=== PATIENT | male | born 1970 | race Caucasian/White ===

== ENCOUNTER → 2024-11-02 13:48 | Outpatient (BNVA) | payer MEDICARE, MEDICAID, SELFPAY | DX: I10 Essential (primary) hypertension (principal) | CPT/HCPCS: 80053; 80061; 83036; 84439; 84443; 84481; 85025 ==

== ENCOUNTER → 2024-11-05 09:43 | Outpatient (BNVA) | payer MEDICARE, SELFPAY | PROVIDERS: Visit Provider Student in an Organized Health Care Education/Training Program | DX: Z12.11 Encounter for screening for malignant neoplasm of colon (principal) | CPT/HCPCS: 99024; 99204 ==

== ENCOUNTER 2024-11-17 09:18 | Outpatient (CLI) | payer MEDICARE, SELFPAY ==
--- NOTE | 2024-11-17 09:24 | XR_ITS ---
WS: [id number] XR lumbar spine 2-3V* [id number] REASON FOR EXAM: chronic back pain FINDINGS: Mild straightening of the normal lordosis. There are 4 lumbar vertebrae without ribs. The fifth lumbar vertebra is partially sacralized with rudimentary disc formation. No significant vertebral body compression deformity. Limbus vertebrae at L3. Moderate narrowing of the disc space between the second and third lumbar vertebrae. Significant narrowing of the disc space between the the fourth lumbar vertebrae and the partially sacralized L5 with moderate endplate sclerosis and osteophytosis. No spondylolysis or spondylolisthesis. There may be narrowing of the distal most lumbar spinal canal due to the short pedicles of the fourth lumbar vertebrae. 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 Degenerative spondylosis as above. Possible wall congenital spinal canal narrowing as above.
--- NOTE | 2024-11-17 09:24 | XR_ITS ---
WS: [id number] XR chest 2V* [id number] REASON FOR EXAM: copd FINDINGS: The heart and the mediastinum are within normal limits. Calcified granulomatous disease bilaterally. Flattening of the hemidiaphragms with areas of cystic lucency in the upper lungs. No acute pulmonary parenchymal or pleural abnormality. No significant abnormality of the bony thorax. XR/XR chest 2V* [id number] IMPRESSION: Possible central lobar emphysema. No acute chest abnormality.
--- NOTE | 2024-11-17 09:24 | XR_ITS ---
WS: [id number] XR thoracic spine 3V* [id number] REASON FOR EXAM: chronic back pain FINDINGS: Mild thoracic scoliosis with no significant kyphosis. No significant vertebral body compression deformity or focal lesion. Minimal joint space narrowing and endplate sclerosis in the mid thoracic spine. XR/XR thoracic spine 3V* [id number] IMPRESSION: Mild thoracic scoliosis with minimal degenerative spondylosis.
== END 2024-11-17 09:19 | disposition home or self-care (01) ==
LOC: RAD 09:21
DX: J44.9 Chronic obstructive pulmonary disease, unspecified (principal); M41.9 Scoliosis, unspecified; M25.78 Osteophyte, vertebrae; M43.27 Fusion of spine, lumbosacral region; M48.061 Spinal stenosis, lumbar region without neurogenic claudication; G89.29 Other chronic pain
CPT/HCPCS: 71046; 72072; 72100

== ENCOUNTER 2024-11-27 01:02 | Emergency (ER) | payer MEDICARE, MEDICAID, SELFPAY ==
--- OUTSIDE RECORDS SUMMARY | 2024-10-05 03:40 | XMS_ITS | Continuity of Care Document ---
Author Organization [facility] Address [address] [place] [address] Phone Care Team Providers Care Financial Services Agent Name Role Phone Ebony Damon Unavailable Unavailable Allergies, Adverse Reactions, Alerts Substance Reaction Status Criticality baclofen Paranoia Active No Information Medications Medication Instructions Dosage Effective Dates (start - stop) Status Comments amlodipine 5 mg tablet TAKE 1 TABLET BY MOUTH EVERY DAY - Active lidocaine 5 % topical patch apply 1 patch to area of pain once every day. May cut. May wear up to 12hours. - Active Trelegy Ellipta 100 mcg-62.5 mcg-25 mcg powder for inhalation inhale 1 puff by inhalation route every day at the same time each day 1.00 puff - Active ibuprofen 800 mg tablet take 1 tablet by oral route 2 times every day as needed for pain. Take with food. - Active Please deliver to [facility] albuterol sulfate HFA 90 mcg/actuation aerosol inhaler inhale 2 puff by inhalation route every 4 - 6 hours as needed for trouble breathing - Active albuterol sulfate 2.5 mg/3 mL (0.083 %) solution for nebulization inhale 3 milliliter by nebulization route every 6-8 hours, as needed for trouble breathing in place of albuterol inhaler - Active HYDROXYZINE HCL (unknown strength) take 1 tablet by by mouth route every day Not Available - Active Suboxone 8 mg-[address] 2 film by sublingual route 2 times every day allow to dissolve slowly in mouth without chewing or swallowing 2 film - Active Invega Sustenna 234 mg/1.5 mL intramuscular syringe inject 1.5 milliliter by intramuscular route every month 234 MG - Active albuterol sulfate HFA 90 mcg/actuation aerosol inhaler inhale 2 puff by inhalation route every 4 - 6 hours as needed as needed 180 MCG - Active amlodipine 5 mg tablet TAKE 1 TABLET BY MOUTH EVERY DAY - No Longer Active lidocaine 5 % topical patch apply 1 patch to area of pain once every day. May cut. May wear up to 12hours. - No Longer Active please deliver this month's to [facility] Trelegy Ellipta 100 mcg-62.5 mcg-25 mcg powder for inhalation inhale 1 puff by inhalation route every day at the same time each day 1.00 puff No Longer Active Please deliver to [facility]. Procedures Procedure Date Two Surface Anterior Resin Comp Mar- 025 Local Anesthesia Three Surface Anterior Resin Comp Two Surface Anterior Resin Comp Jun- 025 Two Surface Anterior Resin Comp Jun- 025 Three Surface Anterior Resin Comp Three Surface Anterior Resin Comp Three Surface Posterior Resin Comp Mar- Three Surface Posterior Resin Comp Mar-1 Extraction, Erupted Tooth Or Exposed Michelle t ([facility] Local Anesthesia Extraction, Erupted Tooth Or Exposed Michelle t ([facility] Extraction, Erupted Tooth Or Exposed Michelle t ([facility] Extraction, Erupted Tooth Or Exposed Michelle t ([facility] Extraction, Erupted Tooth Or Exposed Michelle t ([facility] Extraction, Erupted Tooth Or Exposed Michelle t ([facility] Extraction, Erupted Tooth Or Exposed Michelle t ([facility] Extraction, Erupted Tooth Or Exposed Michelle t ([facility] Extraction, Erupted Tooth Or Exposed Michelle t ([facility] Extraction, Erupted Tooth Or Exposed Michelle t ([facility] [employer] Intraoral Periapical First Film 025 Intraoral Periapical Each Additional Jun Intraoral Periapical Each Additional Jun Intraoral Periapical Each Additional Jun [employer] Comprehensive Evaluation Caries Risk Assessment And Documentation High Risk OFFICE O/P EST LOW 20-29 MIN OFFICE O/P EST MOD 30-39 MIN Ketorolac tromethamine inj IMMUNIZATION ADMIN, EACH ADD FLU VACCINE NO PRESERV 3 & > IMMUNIZATION ADMIN TDAP VACCINE >7 IM PREV VISIT, NEW, AGE 40-64 ROUTINE VENIPUNCTURE COMPLETE CBC W/AUTO DIFF WBC COMPREHEN METABOLIC PANEL ASSAY OF FREE THYROXINE GLYCATED HEMOGLOBIN TEST ASSAY THYROID STIM HORMONE LIPID PANEL NATRIURETIC PEPTIDE OFFICE/OUTPATIENT VISIT, EST DRUG TEST PRSMV DIR OPT OBS OFFICE/OUTPATIENT VISIT, EST OFFICE/OUTPATIENT VISIT, EST ROUTINE VENIPUNCTURE ASSAY OF BLOOD/URIC ACID OFFICE/OUTPATIENT VISIT, EST DRUG TEST PRSMV DIR OPT OBS PSYCH DIAG EVAL W/MED SRVCS OFFICE/OUTPATIENT VISIT, EST OFFICE/OUTPATIENT VISIT, EST OFFICE/OUTPATIENT VISIT, EST ROUTINE VENIPUNCTURE NATRIURETIC PEPTIDE BASIC METABOLIC PANEL ASSAY OF FREE THYROXINE ASSAY THYROID STIM HORMONE LIPID PANEL SNRP Periodontal Scaling And Root Planing-One To Three Periodontal Scaling And Root Planing-One To Three Periodontal Scaling And Root Planing-One To Three PHQ2 Screening PHQ2 Screening Limited Evaluation Intraoral Periapical First Film 022 Intraoral Periapical Each Additional Apr Intraoral Periapical Each Additional Apr Intraoral Periapical Each Additional Apr Intraoral Periapical Each Additional Apr Panoramic Film Bitewing [employer] Films Perio Exam DRUG TEST PRSMV DIR OPT OBS OFFICE/OUTPATIENT VISIT, EST PSYCH DIAGNOSTIC EVALUATION DRUG TEST PRSMV DIR OPT OBS OFFICE/OUTPATIENT VISIT, EST DRUG TEST PRSMV DIR OPT OBS Admin influenza virus vac FLU VAC NO PRSV 4 AZAEL 3 YRS+ OFFICE/OUTPATIENT VISIT, EST ROUTINE VENIPUNCTURE COMPLETE CBC W/AUTO DIFF WBC COMPREHEN METABOLIC PANEL GLYCATED HEMOGLOBIN TEST LIPID PANEL DRUG SCREEN ONE/MULT CLASS HEPATITIS C AB TEST HIV-1 AG W/HIV-1 & HIV-2 AB Infectious agent detection by nucleic ac id OFFICE/OUTPATIENT VISIT, EST OFFICE/OUTPATIENT VISIT, EST OFFICE/OUTPATIENT VISIT, NEW Advance Directives Directive Yes / No Effective Date File Name No Information Encounters Encounter Description Practice Location Reason(s) For Visit Diagnoses Date Provider Providers Copied on Encounter [facility], [address] [place] [address] Drive, [place], [id number], [place] tel:[phone] [facility] No Information Maedlin Beck. [address] [facility], [id number] [address] [place] [address], [id number], [place]. tel:[phone] [facility], [address] [place] [address] ons [place], [id number], [place] tel:[phone] [facility] No Information Jun- 5 Madelin Beck. [facility], [id number] [address] [place] [address], [id number], [place]. tel:[phone] [facility], [address] [place] [address] ons [place], [place], [id number], [place] tel:[phone] [facility] Encounter for dental examination and cleaning without abnormal findings Jun- 5 Terra Rosen. [facility] [employer] [address], [id number] [address] [place] [address], [id number], [place]. tel:[phone] Referring Provider: Silas Ellison, [facility] [employer] [id number] [place] [address], [address]. tel:[phone] [facility], [address] [place] [address], [id number], [place] tel:[phone] [facility] Encounter for dental examination and cleaning without abnormal findings 5 Terra Rosen. [facility] [employer] [address], [id number] [address] [place] [address], [id number], [place]. tel:[phone] Referring Provider: Silas Ellison, [facility] [employer] [id number] [place] [address], [address]. tel:[phone] [facility], [address] [place] [address], [id number], [place] tel:[phone] [facility] Encounter for dental examination and cleaning without abnormal findings 5 Terra Rosen. [facility] [employer] [address], [id number] [address] [place] [address], [id number], [place]. tel:[phone] Referring Provider: Silas Ellison, [address] [facility] [id number] [place] [address], [address]. tel:[phone] OFFICE O/P EST LOW 20-29 MIN [facility], [facility] Communicati ons [facility], [place], [place], [id number], tel:[phone] [facility] back pain (chief complaint) Body mass index [BMI] 31.0-31.9, adultLow back painCOPDToba tobacco prevention health educator use 5 Yusuf Ebony. [address] [place] [address], [id number] [address] [place] [address], [id number], [place]. tel:[phone] Referring Provider: Ebony Yusuf, [address] [place] [id number] [place] [address], [address]. tel:[phone] [facility], [address] [place] [address], [id number], tel:[phone] [facility] Adult obstructive sleep apnea 4 Yusuf Ebony. [facility], [id number] [address] [place] [address], [id number], [place]. tel:[phone] [facility], [address] [place] [address] ons [place], [id number], tel:[phone] [facility] Adult obstructive sleep apnea 4 Yusuf Ebony. [address] [place] [address], [id number] [address] [place] [address], [id number], [place]. tel:[phone] [facility], [facility] [address] [place], [id number], tel:[phone] [facility] AnemiaCOPDEs sential (primary) hypertension Hypothyroidi sm, unspecifiedT obacco useSyncope and collapseEnco unter for screening for diabetesHype rlipidemia, unspecifiedE ncounter for screening for malignant neoplasm of prostateEnco unter for screening for other viral diseasesEnco unter for STI screeningOth er buttermaker helper (current) drug therapy 4 Yusuf Ebony. [address] [place] [address], [id number] [address] [place] [address], [id number], [place]. tel:[phone] OFFICE O/P EST MOD 30-39 MIN [facility], [address] [place] [address], [id number], [place] tel:[phone] [facility] Return to work Note (chief complaint) Body mass index [BMI] 30.0-30.9, adultEssenti al (primary) hypertension Amphetamine type substance use disorder, moderateToba tobacco prevention health educator useSyncope and collapseBipo lar disorder, unspecified 4 Madelin Beck. [address] [place] [address], [id number] [address] [place] [address], [id number], [place]. tel:[phone] Referring Provider: Ebony Yusuf, [address] [place] [id number] [place] [address], [address]. tel:[phone] [facility], [address] [place] [address], [id number], [place] tel:[phone] [facility] Dorsalgia, unspecified 4 Madelin Bunchin. [address] [place] [address], [id number] [address] [place] [address], [id number], [place]. tel:[phone] [facility], [address] [place] [address], [id number], [place] tel:[phone] [facility] Irregular Stool (chief complaint) Body mass index [BMI] 30.0-30.9, adultOther fecal abnormalitie Kenia in unspecified shoulderBack pain 4 Madelin Beck. [address] [place] [address], [id number] [address] [place] [address], [id number], [place]. tel:[phone] Referring Provider: Ebony Yusuf, [address] [place] [id number] [place] [address], [address]. tel:[phone] PREV VISIT, NEW, AGE 40-64 [facility], [address], [place], [place], [id number], [place] tel:[phone] [facility] Est care (chief complaint) Body mass index [BMI] 29.0-29.9, adultAmpheta mine type substance use disorder, severeAnemia COPDEncounte r for screening for HIVEncounter for screening for other viral diseasesEsse ntial (primary) hypertension Hyperlipidem ia, unspecifiedH ypothyroidis m, unspecifiedT obacco useBack painEncounte r for adult annual physical exam w/ abnormal findingAdult obstructive sleep apnea 4 Madelin Beck. [address] [place] [address], [id number] [facility], [place], [place], [id number], [place]. tel:[phone] Referring Provider: Ebony Yusuf, [address] [place] [address] [id number] [facility], [place], [address]. tel:[phone] [facility], [address], [place], [place], [id number], [place] tel:[phone] [facility] Hypothyroidi sm, unspecifiedA nemia 2 Elizabeth Duran [facility] [address], [id number] [facility], [place], [place], [id number], [place]. tel:[phone] OFFICE/OUTPA TIENT VISIT, EST [facility], [facility] [address], [place], [place], [id number], [place] tel:[phone] [facility] Discuss Medications (chief complaint)Pr ovider note-Malcom Johnson FABRICATION SUPERVISOR (chief complaint) Body mass index (BMI) 40.0-44.9, adultTobacco useEdemaEsse ntial (primary) hypertension Opioid Use Disorder, SeverePure hyperglyceri demiaHypothy roidism, unspecifiedP ersonal history of nicotine dependenceOb esity 2 Elizabeth Duran [address], [id number] 0, [place], [id number], [place]. tel:[phone] Referring Provider: Mia Johnson, [facility] [address] [id number] [address], [place], [address]. tel:[phone] [facility], [address], [place], [id number], [place] tel:[phone] [facility] No Information 2 Elizabeth Bellamy. [address], [id number] [address], [place], [id number], [place]. tel:[phone] OFFICE/OUTPA TIENT VISIT, EST [facility], [address], [place], [id number], [place] tel:[phone] [facility] AMP OUD medication management without psychotherap y (chief complaint) Opioid Use Disorder, SevereAmphet amine type substance use disorder, severePost-t raumatic stress disorder, chronicBipol ar disorder, unspecifiedG eneralized Anxiety Disorder 2 Misty Leonard. [address], [id number] [address], [place], [id number], [place]. tel:[phone] Referring Provider: Horacio Rashid, [facility] [address] [id number] [address], [place], [address]. tel:[phone] OFFICE/OUTPA TIENT VISIT, EST [facility], [address], [place], [id number], [place] tel:[phone] [facility] Symptoms Check (chief complaint)Pr ovider note-A. Elizabeth FABRICATION SUPERVISOR (chief complaint) Body mass index (BMI) 40.0-44.9, adultTobacco useEdema 2 Elizabeth Bellamy. [address], [id number] [address], [place], [place], [id number], [place]. tel:[phone] Referring Provider: Mia Johnson, [facility] [address] [id number] [address], [place], [address]. tel:[phone] OFFICE/OUTPA TIENT VISIT, EST [facility], [address], [place], [id number], [place] tel:[phone] [facility] Follow up (chief complaint)Pr ovider note-A. Elizabeth FABRICATION SUPERVISOR (chief complaint) Body mass index (BMI) 39.0-39.9, adultTobacco useEdema 2 Elizabeth Bellamy. [address], [id number] 0, [place], [id number], [place]. tel:[phone] Referring Provider: Mia Johnson, [address] [id number] 0, [place], [address]. tel:[phone] PSYCH DIAG EVAL W/MED SRVCS [facility], [address], [place], [id number], [place] tel:[phone] [facility] Psychiatric diagnostic evaluation AMP (chief complaint) Opioid Use Disorder, SevereAmphet amine type substance use disorder, severeBody mass index (BMI) 39.0-39.9, adultBipolar disorder, unspecifiedP ost-traumati c stress disorder, chronicPerso nal history of physical and sexual abuse in childhoodImp risonment or Other Incarceratio nGeneralized Anxiety Disorder 2 Misty Leonard. [address], [id number] [address], [place], [id number], [place]. tel:[phone] Referring Provider: Horacio Rashid, [facility]1 x[address] [id number] [address], [place], [address]. tel:[phone] OFFICE/OUTPA TIENT VISIT, EST [facility], [address], [place], [id number], [place] tel:[phone] [facility] follow up (chief complaint)Pr pro note-A. Elizabeth FABRICATION SUPERVISOR (chief complaint) Body mass index (BMI) 39.0-39.9, adultEdema 2 Elizabeth Bellamy. [address], [id number] [address], [place], [id number], [place]. tel:[phone] Referring Provider: Mia Johnson, [address] [id number] [address], [place], [address]. tel:[phone] OFFICE/OUTPA TIENT VISIT, EST [facility], [address], [place], [id number], [place] tel:[phone] [facility] Symptoms Check (chief complaint)Pa tient note-ASherlyn Johnson FABRICATION SUPERVISOR (chief complaint) Body mass index (BMI) 39.0-39.9, adultTobacco useEdema 2 Elizabeth Bellamy. [address], [id number] [address], [place], [place], [id number], [place]. tel:[phone] Referring Provider: Mia Johnson, [address] [id number] [address], [place], [address]. tel:[phone] [facility], [address], [place], [id number], [place] tel:[phone] [facility] Edema 2 Elizabeth Mott x[address], [id number] [address], [place], [id number], [place]. tel:[phone] OFFICE/OUTPA TIENT VISIT, EST [facility], [address], [place], [id number], [place] tel:[phone] [facility] Follow up (chief complaint)Pr ovider note-A. Elizabeth FABRICATION SUPERVISOR (chief complaint) Body mass index (BMI) 39.0-39.9, adultTobacco useEdemaWhee zingOrthopne aCOPDHyperli pidemia, unspecified 2 Elizabeth Bellamy. [address], [id number] [address], [place], [place], [id number], [place]. tel:[phone] Referring Provider: Mia Johnson, [address] [id number] 0, [place], [address]. tel:[phone] [facility], [address], [place], [id number], [place] tel:[phone] [facility] No Information 2 Edgar Atkins. [address] [id number] 0, [place], [id number], [place]. tel:[phone] Referring Provider: Joelle Garza, [address] [id number] 0, [place], [address]. tel:[phone] lting Provider: Vicenta Garcíaati eloise Monaco [id number] 0, [place], [address]. tel:[phone] [facility], [address], [place], [id number], [place] tel:[phone] [facility] No Information 2 Edgar Atkins. [address] [id number] 0, [place], [id number], [place]. tel:[phone] Referring Provider: Carly Rice, [address], [place], [address]. tel:[phone] lting Provider: Joelle Garza, [address] [id number] 0, [place], [address]. tel:[phone] OFFICE/OUTPA TIENT VISIT, EST [facility], [address], [place], [id number], [place] tel:[phone] [facility] Follow up (chief complaint)Melisa carrasco-Malcom Johnson FABRICATION SUPERVISOR (chief complaint) Body mass index (BMI) 37.0-37.9, adultTobacco usePain in left kneeOpioid Use Disorder, SeverePure hyperglyceri demia Dec-2 9-202 1 Elizabeth Bellamy. [address], [id number] [address], [place], [id number], [place]. tel:[phone] Referring Provider: Mia Johnson, [address] [id number] [address], [place], [address]. tel:[phone] PSYCH DIAGNOSTIC EVALUATION [facility], [address], [place], [place], [id number], [place] tel:[phone] [facility] Amphetamine type substance use disorder, severe 1 Cholo Farr. [address], [place], [place], [id number], [place]. tel:[phone] Referring Provider: Chika Emmanuel, [facility] [address], [place], [address]. tel:[phone] OFFICE/OUTPA TIENT VISIT, EST [facility], [address], [place], [id number], [place] tel:[phone] [facility] follow up (chief complaint)Pr ovider note-A. Elizabeth FABRICATION SUPERVISOR (chief complaint) Body mass index (BMI) 34.0-34.9, adultPure hyperglyceri demiaCOPDEss ential (primary) hypertension Opioid Use Disorder, SevereHypoth yroidism, unspecified 1 Elizabeth Bellamy. [address], [id number] [address], [place], [place], [id number], [place]. tel:[phone] Referring Provider: Mia Maria Fernandagalina, [facility] [address] [id number] [address], [place], [address]. tel:[phone] OFFICE/OUTPA TIENT VISIT, EST [facility], [address], [place], [place], [id number], [place] tel:[phone] [facility] Establish Care (chief complaint)Pr ovider note-A. Elizabeth FABRICATION SUPERVISOR (chief complaint) Body mass index (BMI) 34.0-34.9, adultTobacco useOpioid Use Disorder, SevereEncoun ter for screening for HIVEncounter for screening for other viral diseasesDiso rder of the skinHyperlip idemia, unspecifiedO besityOther stimulant abuse, uncomplicate dCOPDEssenti al (primary) hypertension 1 Elizabeth Bellamy. [address], [id number] 0, [place], [id number], [place]. tel:[phone] Referring Provider: Mia Johnson, [address] [id number] 0, [place], [address]. tel:[phone] [facility], [facility] [address], [place], [id number], [place] tel:[phone] [facility] No Information 1 Wilner Villarreal. [address], [id number] 0, [place], [id number], [place]. tel:[phone] Referring Provider: Cherelle Darby, [address] [id number] 0, [place], [address]. tel:[phone] OFFICE/OUTPA TIENT VISIT, EST [facility], [address], [place], [id number], [place] tel:[phone] [facility] Mati Follow Up of MAT Treatment (chief complaint)Fo llow Up of abscess right leg (chief complaint) Other stimulant abuse, uncomplicate dCutaneous abscess of right lower limbEdema 1 Javad Craven. [facility] [address] [place], [place], [id number], [place]. tel:[phone] Referring Provider: Herber Taveras, [address] [place], [address]. tel:[phone] OFFICE/OUTPA TIENT VISIT, EST [facility], [facility] [address], [place], [id number], [place] tel:[phone] [facility] Mati Abscess on leg (chief complaint)Fo llow Up of MAT Treatment (chief complaint)Sl eep apnea (chief complaint)me thamphetamin e addiction (chief complaint) Other stimulant abuse, uncomplicate dCutaneous abscess of right lower limb Sep-3 0 1 Javad Craven. [address] [place], [place], [id number], . tel:[phone] Referring Provider: Herber Taveras [address] [place] [address], [address]. tel:[phone] OFFICE/OUTPA TIENT VISIT, NEW [facility], [address] [place] [address], [id number], [place] tel:[phone] [facility] methamphetam ine addiction (chief complaint)in fection on right calf (chief complaint) Other (or Unknown) Substance Use Disorder, SevereCutane ous abscess of right lower limb Sep-2 1 Javad Craven. [facility] [address] [place], [place], [id number], [place]. tel:[phone] Referring Provider: Herber Taveras [address] [place] [address], [address]. tel:[phone] Family History Family Member Type Diagnosis Age At Onset Problem Family history o f coronary arteriosclerosis Mother Problem (finding) Problem Family history of Diabetes m ellitus Problem Family history of hypertensi on Father Problem (finding) Immunizations Vaccine Date Status Comments Influenza, injectable, trivalent, split virus, 0.5 mL dosage, preservative free, Fluarix Triv administered Source: New Immun ization Record Tdap (Boostrix) administered Source: New Immunization Record Influenza, injectable, quadrivalent, split virus, preservative free, 0.5 mL dosage, 3 years and older, Afluria Quad administered Source: New Immun ization Record SARS-COV-2 (COVID-19) vaccin e, mRNA, spike protein, LNP, preservative free, 30 mcg/0.3mL dose, elvis-sucrose formulation administered Source: P ublic Agency SARS-COV-2 (COVID-19) vaccin e, mRNA, spike protein, LNP, preservative free, 30 mcg/0.3mL dose administered Source: Public Agenc y Tdap (Boostrix) administered Source: Sour ce Unspecified Td (adult) preservative free administered Source: Public Agency Tdap (Adacel) administered Source: Public Agency pneumococcal polysaccharide vaccine, 23 valent administered Source: Source Unspe cified pneumococcal polysaccharide vaccine, 23 valent administered Source: Source Unspe cified Tdap (Boostrix) administered Source: [facility] hepatitis B vaccine, unspecified formulation administered Source: Source U nspecified hepatitis B vaccine, unspecified formulation administered Source: Source U nspecified Payers Payer name Insurance type Covered republican ID Authoriza tion(s) [facility] [id number] [employer] Medicare Replacment CI [id number] [facility] [id number] Medicare Part B WPS MB [id number] [facility] [id number] Social History Type Description Quantity Date Captured Comments Sex Male Smoking Status No Information Sexual Orientation Straight or heterosexual Gender Identity Male Chief Complaint And Reason For Visit No Information Reason For Referral Reason For Referral No Information Plan Of Treatment Date Type Action Status Goal FIT. Due on due Goal CT-Colonography. Due on due Goal Pneumococcal vac cine. Due on due Goal Lipid panel. Due on 025 due Goal Unhealthy drug u se screening. Due on due Goal Sigmoidoscopy. Due on due Goal Td vaccine. Due on 34 due Goal Diabetes screeni ng. Due on due Goal Tdap due Goal FOBT. Due on due Goal FIT-DNA. Due on due Goal Hepatitis C scre ening. Due on due Goal Influenza vaccin e. Due on due Goal Depression scree roberto. Due on due Goal Colonoscopy. Due on due Goal Pneumococcal Pre vnar. Due on due Goal Zoster vaccine ( ). Due on due Goal Dietary manageme nt education, guidance, and counseling completed Goal Tobacco cessation counseling completed Goal Td vaccine. Due on 34 due Goal FIT-DNA. Due on due Goal Diabetes screeni ng. Due on due Goal Hepatitis C scre ening. Due on due Goal Pneumococcal Pre vnar. Due on due Goal Zoster vaccine ( ). Due on due Goal Depression scree roberto. Due on due Goal Unhealthy drug u se screening. Due on due Goal Influenza vaccin e. Due on due Goal FIT. Due on due Goal Lipid panel. Due on 024 due Goal Sigmoidoscopy. Due on due Goal CT-Colonography. Due on due Goal FOBT. Due on due Goal Colonoscopy. Due on due Goal Tdap due Goal Pneumococcal vac cine. Due on due Goal Colonoscopy. Due on due Goal Sigmoidoscopy. Due on due Goal CT-Colonography. Due on due Goal Influenza vaccin e. Due on due Goal Hepatitis C scre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 unspecified continue fenofibrate 160mg daily for cholesterolstop the atorvastatin Related to Pure hyperglyceridemia Lasix 20mg daily Related to Mac a restart the losartan 100mg dailymetoprolol (Toprol XL) 25 mg daily Related to Essential (primary) hypertension Giving encouragement to exercise Related to Body mass index [BMI] 40.0-44.9, adult Dietary management e ducation, guidance, and counseling Related to Body mass index [BMI] 40.0-44.9, adult Giving encouragement to exercise Related to Body mass index [BMI] 40.0-44.9, adult Dietary management e ducation, guidance, and counseling Related to Body mass index [BMI] 40.0-44.9, adult Giving encouragement to exercise Related to Body mass index [BMI] 39.0-39.9, adult Dietary management e ducation, guidance, and counseling Related to Body mass index [BMI] 39.0-39.9, adult Giving encouragement to exercise Related to Body mass index [BMI] 39.0-39.9, adult Dietary management e ducation, guidance, and counseling Related to Body mass index [BMI] 39.0-39.9, adult Giving encouragement to exercise Related to Body mass index [BMI] 39.0-39.9, adult Dietary management e ducation, guidance, and counseling Related to Body mass index [BMI] 39.0-39.9, adult Giving encouragement to exercise Related to Body mass index [BMI] 39.0-39.9, adult Dietary management e ducation, guidance, and counseling Related to Body mass index [BMI] 39.0-39.9, adult Giving encouragement to exercise Related to Body mass index [BMI] 39.0-39.9, adult Dietary management e ducation, guidance, and counseling Related to Body mass index [BMI] 39.0-39.9, adult Giving encouragement to exercise Related to Body mass index [BMI] 37.0-37.9, adult Dietary management e ducation, guidance, and counseling Related to Body mass index [BMI] 37.0-37.9, adult Dietary management e ducation, guidance, and counseling Related to Body mass index [BMI] 34.0-34.9, adult Giving encouragement to exercise Related to Body mass index [BMI] 34.0-34.9, adult Giving encouragement to exercise Related to Body mass index [BMI] 34.0-34.9, adult Dietary management e ducation, guidance, and counseling Related to Body mass index [BMI] 34.0-34.9, adult Continue Keflex and Bactrim. Ortho Consult. Medication instructions were provided to the patient. Signs and symptoms of infection were discussed with the patient. Signs and symptoms of emergency were discussed with the patient. Related to Cutaneous abscess of right lower limb Continue plan of car e for inpatient [facility] treatment. Patient to inform nurses if he develops any issues while being an inpatient at our facility. Discontinue Seroquel from another provider and start Suboxone 4mg/1mg TID Related to Other stimulant abuse, uncomplicated Take HCTZ daily to r educe edema in lower extremities Related to Edema Refer patient to [facility] for follow-up after discharge from inpatient. Continue to take antibiotics as prescribed by the ER. Related to Cutaneous abscess of right lower limb Continue with Suboxo ne 4mg/1mg TID. Continue plan of care for inpatient [facility] treatment. Patient to inform nurses if he develops any issues while being an inpatient at our facility. The patient verbalized an understanding of the plan. The patient verbalized an understanding of all instructions. Related to Other stimulant abuse, uncomplicated Continue plan of car e for inpatient [facility] treatment. Patient to inform nurses if he develops any issues while being an inpatient at our facility. Baclofen 10mg BID to help with meth cravings. The patient verbalized an understanding of all instructions. The patient verbalized an understanding of the plan. Related to Other (or Unknown) Substance Use Disorder, Severe Get a wound clinic c onsult for Right calf abscess Related to Cutaneous abscess of right lower limb Assessments Type Assessment Date No Information Patient Care Teams Name Effective Dates (start - stop) Status Members No Information
[2024-11-27 01:13] VITALS: BP 178/84; PULSE 102; RESP 18; TEMP 36.9; O2SAT 96; BMI 29.9
[2024-11-27 01:31] LABS: Add Urine Microscopic? NO
[2024-11-27 01:34] LABS: Glucose Urine UA Negative (Normal); Nitrate Urine Negative (Negative)
[2024-11-27 01:41] LABS: Charge for UA Resulting for Rev; PCP Screen Urine Negative (Negative); Specific Gravity, Urine 1.031 (1.005-1.030)
[2024-11-27 01:42] LABS: Hematocrit 43.9 % (37-53); Hemoglobin 15.00 g/dL (11.27-16.99); Mean Corpuscular HGB Conc 34.2 g/dL (30-55); Mean Corpuscular Hemoglobin 30.5 pg (27-33); Mean Corpuscular Volume 89.4 fl (82-101); Nucleated Red Blood Cells % 0 %; Platelet Count 202 10^3/cmm (157-399); Red Blood Count 4.91 10^6/uL (3.85-5.65); White Blood Count 9.73 10^3/uL (3.29-11.43)
[2024-11-27 02:03] LABS: Alanine Aminotransferase 20 U/L (0-41); Albumin Level 4.8 g/dL (3.5-5.2); Alkaline Phosphatase 105 U/L (40-130); Anion Gap 19.0 (5-19); Aspartate Amino Transferase 39 U/L (0-40); Blood Urea Nitrogen 22 mg/dL (6-20); Calcium 9.9 mg/dL (8.5-10.5); Carbon Dioxide 23 mmol/L (22-29); Chloride 104 mmol/L (98-107); Creatinine Clr Calc Pharmacy 90.3541; Globulin 3.8 g/dL (1.3-4.6); Glucose 114 mg/dL (65-115); Osmolality Calculated 298 mOsm/kg (285-295); Potassium 4.0 mmol/L (3.5-5.1); Sodium 142 mmol/L (136-145); Total Protein 8.6 g/dL (6.6-8.7)
[2024-11-27 02:06] LABS: Acetaminophen < 5.0 ug/mL (10-30); Alcohol Level < 10 mg/dL (0-10); Salicylate < 0.3 mg/dL (3-10)
--- NOTE | 2024-11-27 02:45 | PC.NURSE ---
Pt. demanding to leave. Doctor Jonas informed and states that it is okay that he would discharge him
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
== END 2024-11-27 02:51 | disposition home or self-care (01) ==
PROVIDERS: Emergency Provider Student in an Organized Health Care Education/Training Program
DX: F43.10 Post-traumatic stress disorder, unspecified (principal); F15.20 Other stimulant dependence, uncomplicated; Z72.0 Tobacco use
CPT/HCPCS: 36415; 80053; 80306; 80307; 81003; 85025; 99283; J9999